=== PATIENT | female | born 1980 ===

== ENCOUNTER → 2017-04-09 | Outpatient (CLI) | payer OTHER ==
--- NOTE | 2017-04-09 12:44 | MAMMOGRAPHY REPORT ---
BILATERAL DIGITAL DIAGNOSTIC MAMMOGRAM TOMOSYNTHESIS WITH CAD AND TARGETED BILATERAL ULTRASOUND: 04/09 CLINICAL HISTORY: The patient reports right breast pain since June or July, which is difficult for her to localize but notices it most prominently behind her nipple. She also reports mild invers ion of the right nipple which she did not clearly notice before. She denies any nipple discharge, pa lpable lumps, or other complaints. She reportedly had an ultrasound in [place] in October which showed n o abnormalities. TECHNIQUE: Breast tomosynthesis in addition to standard 2D mammography was performed. Current study was also evaluated with a Computer Aided Detection (CAD) system. Bilateral CC and MLO 2-D and tomosy nthesis images were obtained. COMPARISON: No prior exams were available for comparison. BREAST COMPOSITION: There are scattered areas of fibroglandular density in both breasts. FINDINGS: There are no suspicious masses, calcifications, or areas of architectural distortion noted within either breast. A few scattered bilateral benign-appearing calcifications are noted. There a re a few prominent left axillary lymph nodes seen on the MLO view, for which ultrasound was performed . Targeted ultrasound was performed of the right subareolar breast in the region of the patient's most prominent pain as well as to evaluate nipple inversion. Sonographically normal tissue is seen within the right subareolar breast, without evidence of a suspicious mass or other suspicious sonographic a bnormality. Targeted ultrasound was also performed of the left axillary region to evaluate the left axillary lymph nodes. There are morphologically normal left axillary lymph nodes which have normal f atty melisa and normal hypoechoic cortices. Additionally, ultrasound was performed of the right axilla for comparison purposes, which shows that the axillary lymph nodes are bilaterally symmetric without evidence of adenopathy. IMPRESSION: ACR BI-RADS CATEGORY 2: BENIGN, TARGETED ULTRASOUND ACR BI-RADS CATEGORY 2: BENIGN No mammographic evidence of malignancy in either breast. No etiology for right breast pain or right nipple inversion evident. There is no mammographic or targeted sonographic evidence of malignancy. Recommend clinical follow-up for right breast pain and nipple inversion, and recommend routine bilate ral screening mammograms starting at age of 40 unless otherwise clinically indicated. The patient has been verbally notified of the results. Approximately 10% of breast cancers are not detected with mammography. A negative mammographic report should not delay biopsy if a clinically suggestive mass is present. Caro Sinclair M.D. ah/:04/09/2017 11:25:31 Human Resources Project Coordinator: Maddy WILEY)(Stephanie), [facility] letter sent: Normal 1/2 BI-RADS Code: ACR BI-RADS Category 2: Benign Ultrasound BI-RADS: ACR BI-RADS Category 2: Benign
== END | disposition home or self-care (01) ==
LOC: EDSEX → C.MAMM 09:59
PROVIDERS: ATTEND Physician Assistant Medical
DX: N64.4 Mastodynia (principal)